=== PATIENT | female | born 1965 | race Two or more races ===

== ENCOUNTER 2020-10-13 11:48 | Outpatient (CLI) | payer OTHER | END 2020-10-13 11:53 | disposition home or self-care (01) | LOC: SONOGRAMA 11:48 | PROVIDERS: ATTEND Pathology Anatomic Pathology & Clinical Pathology | DX: E04.1 Nontoxic single thyroid nodule (principal) ==

== ENCOUNTER 2021-02-09 10:47 | Outpatient (CLI) | payer OTHER | END 2021-02-09 11:05 | disposition home or self-care (01) | LOC: SONOGRAMA 10:47 | PROVIDERS: ATTEND Pathology Anatomic Pathology & Clinical Pathology | DX: E04.1 Nontoxic single thyroid nodule (principal) ==